=== PATIENT | male | born 1995 | race Caucasian/White ===

== ENCOUNTER 2019-10-03 20:58 | Emergency (ER) | payer BC ==
[2019-10-03] MEDS ORDERED: Diphtheria,Pertussis(Acell),Tetanus Vaccine 0.5 ML Syringe IM ONE (21:27)
[2019-10-03] MEDS ORDERED: Octyl 2-Cyanoacrylate 1 Tube TOP ONE (21:27)
[2019-10-03] MEDS ORDERED: Bacitracin Oint 1 GM U/D Packet TOP ONE (21:27)
--- NOTE | 2019-10-03 21:37 | EDM.PDOC ---
ED HPI GENERAL MEDICAL PROBLEM - General Chief Complaint: Head Injury Stated Complaint: NOSE INJURY Time Seen by Provider: 10/03/19 21:02 Source of Information: Reports: Patient History Limitations: Reports: No Limitations - History of Present Illness INITIAL COMMENTS - FREE TEXT/NARRATIVE: HISTORY AND PHYSICAL: History of present illness: Patient is a 24-year-old male who presents to the emergency room with complaints of laceration to the left side of his face after being hit by a pipe. He states that a pipe had fallen resulting in hitting him in the face. He denies any loss of consciousness. Concerned as he was not able to get a laceration to his left nare to quit bleeding. He also has a laceration to the left upper lip and chin. Teeth are intact and he does not have any pain to his neck or facial bones. Patient denies any fever, chills, headache, change in vision, syncope or near syncope. Denies any chest pain, back pain, shortness of breath or cough. Denies any GI or symptoms. Unsure of his last tetanus update. Review of systems: As per history of present illness and below otherwise all systems reviewed and negative. Past medical history: As per history of present illness and as reviewed below otherwise noncontributory. Surgical history: As per history of present illness and as reviewed below otherwise noncontributory. Social history: See social history for further information Family history: As per history of present illness and as reviewed below otherwise noncontributory. Physical exam: General: Well developed and well nourished 24-year-old male. Alert and oriented. Nontoxic-appearing and in no acute distress. HEENT: See skin for details, normocephalic, pupils equal and reactive bilaterally, negative for conjunctival pallor or scleral icterus, mucous membranes moist, intact, no oral lacerations noted, nares are patent bilaterally , TMs normal bilaterally, throat clear, neck supple, nontender, trachea midline. No drooling or trismus noted. No meningeal signs. No hot potato voice noted. Lungs: Clear to auscultation, breath sounds equal bilaterally, chest nontender. Heart: S1S2, regular rate and rhythm without overt murmur Abdomen: Soft, nondistended, nontender. C-spine/Back: No pinpoint vertebral tenderness upon palpation. No crepitus, step -offs or obvious deformities. Patient is ambulatory into the emergency room without difficulty or deficit. Able to rock back on heels and walk on toes. Denies any urinary or fecal incontinence. Denies any numbness, tingling or saddle paresthesia. Skin: 1 cm laceration to left nare, superficial. Superficial left upper lip laceration does not go through the vermilion border, approximately 2 cm. Abrasion noted to chin. Otherwise remaining skin is intact, warm, dry. No lesions or rashes noted. Extremities: Atraumatic, moves all extremities per self without difficulty or deficits, negative for cords or calf pain. Neurovascular unremarkable. Neuro: Awake, alert, oriented. Cranial nerves II through XII unremarkable. Cerebellum unremarkable. Motor and sensory unremarkable throughout. Exam nonfocal. Notes: The lacerations are superficial and will not require sutures, wound care was provided and the left nare and upper lip were Dermabond. Bacitracin was applied to the chin. Tetanus has been updated. We did discuss doing imaging, he declines. Supportive care measures were reviewed and discussed. Voices understanding and is agreeable to plan of care. Denies any further questions or concerns at this time. Diagnostics: Declined Therapeutics: Dermabond, Tdap, Bacitracin Prescription: None Impression: Head Injury Facial Laceration Plan: 1. Please review and follow the head injury instructions that we discussed and are printed in your packet. Keep the area clean and dry. Continue to monitor for signs of infection. The Dermabond will peel away on its own, please do not pick or pull. 2. Tylenol and/or ibuprofen as needed for pain management. 3. Please follow-up with your primary care provider in the next 1-2 days. Return to the ED as needed and as discussed. Definitive disposition and diagnosis as appropriate pending reevaluation and review of above. facial Pain Score (Numeric/FACES): 3 - Related Data Allergies Allergy/AdvReac Type Severity Reaction Status Date / Time No Known Allergies Allergy Verified 10/03/19 21:28 Home Meds: Home Meds . [No Known Home Meds] 10/03/19 [History] ED ROS GENERAL - Review of Systems Review Of Systems: Comprehensive ROS is negative, except as noted in HPI. (See dictation) ED EXAM, HEAD INJURY - Physical Exam Exam: See Below (See dictation) ED LACERATION/WOUND & JACQUELINE PROC - Laceration/Wound Repair Left nare Lac/wound length in cm: 1 Appearance: Superficial, Clean Distal NVT: Neuro & Vascular Intact, No Tendon Injury Skin Prep: Chlorhexidine (Hibiciens), Providone-Iodine (Betadine), Saline Saline irrigation (cc's): 25 Exploration/Debridement/Repair: Wound Explored, In a Bloodless Field, Explored to Base, No Foreign Material Found Closed with: Dermabond Sterile Dressing Applied: None Tetanus Status Addressed: Yes Complications: No Left upper lip Lac/wound length in cm: 2 Appearance: Superficial, Clean Distal NVT: Neuro & Vascular Intact, No Tendon Injury Skin Prep: Chlorhexidine (Hibiciens), Saline Saline irrigation (cc's): 25 Exploration/Debridement/Repair: Wound Explored, In a Bloodless Field, No Foreign Material Found Closed with: Dermabond Drain Placement: No Sterile Dressing Applied: None Tetanus Status Addressed: Yes Complications: No Course - Vital Signs Last Recorded V/S: Last Vital Signs Temp 97 F 10/03/19 21:22 Pulse 88 10/03/19 21:22 Resp 18 10/03/19 21:22 BP 144/78 H 10/03/19 21:22 Pulse Ox 97 10/03/19 21:22 - Orders/Labs/Meds Orders: Active Orders 24 hr Category Date Time Status Communication Order [RC] STAT Care 10/03/19 21:26 Active Vaccines to be Administered [RC] PER UNIT ROUTINE Care 10/03/19 21:28 Active Meds: Medications Discontinued Medications Generic Name Dose Route Start Last Admin Trade Name Forrest PRN Reason Stop Dose Admin Bacitracin 1 dose 10/03/19 21:27 Bacitracin Oint 1 Gm TOP 10/03/19 21:28 ONETIME ONE Diphtheria/Tetanus/Acell Pertussis 0.5 ml 10/03/19 21:27 Adacel IM 10/03/19 21:28 .ONCE ONE Octyl Cyanoacrylate 1 applic 10/03/19 21:27 Dermabond Advance TOP 10/03/19 21:28 ONETIME ONE Departure - Departure Time of Disposition: 21:37 Disposition: Home, Self-Care 01 Clinical Impression: Head injury Qualifiers: Encounter type: initial encounter Qualified Code(s): S09.90XA - Unspecified injury of head, initial encounter Facial laceration Qualifiers: Encounter type: initial encounter Qualified Code(s): S01.81XA - Laceration without foreign body of other part of head, initial encounter - Discharge Information Referrals: PCP,None [Primary Care Provider] - Forms: ED Department Discharge Sepsis Event Note - Focused Exam Vital Signs: Vital Signs Temp Pulse Resp BP Pulse Ox 10/03/19 21:22 97 F 88 18 144/78 H 97 Date Exam was Performed: 10/03/19 Time Exam was Performed: 21:39 - My Orders Last 24 Hours: My Active Orders 10/03/19 21:26 Communication Order [RC] STAT 10/03/19 21:28 Vaccines to be Administered [RC] PER UNIT ROUTINE - Assessment/Plan Last 24 Hours: My Active Orders 10/03/19 21:26 Communication Order [RC] STAT 10/03/19 21:28 Vaccines to be Administered [RC] PER UNIT ROUTINE
== END 2019-10-03 22:09 | disposition home or self-care (01) ==
LOC: MW.ED 20:58
DX: S01.21XA Laceration without foreign body of nose, initial encounter (principal); S01.511A Laceration without foreign body of lip, initial encounter; Z23 Encounter for immunization; W20.8XXA Other cause of strike by thrown, projected or falling object, initial encounter
CPT/HCPCS: 12013; 90471; 90715; 99282; A9270